=== PATIENT | female | born 1990 | race Caucasian/White ===

== ENCOUNTER 2021-04-19 18:39 | Emergency (ER) | payer OTHER, SELFPAY ==
--- NOTE | 2021-04-19 18:51 | XRR_ITS ---
PROCEDURE INFORMATION: Exam: XR Chest Exam date and time: 04/19/2021 6:51 PM Age: 30 years old Clinical indication: Fever and shortness of breath; Additional info: Dyspnea, fever. Post covid x 18 days TECHNIQUE: Imaging protocol: XR of the chest. Views: 2 views. COMPARISON: No relevant prior studies available. FINDINGS: Lungs: Unremarkable. No consolidation. Pleural spaces: Unremarkable. No pleural effusion. No pneumothorax. Heart/Mediastinum: Unremarkable. No cardiomegaly. Bones/joints: Unremarkable. XR/XR chest 2V* [id number] IMPRESSION: No acute findings.
[2021-04-19 20:31] VITALS: BP 164/97; PULSE 80; RESP 16; TEMP 37; O2SAT 99
[2021-04-19 22:56] VITALS: BP 151/90; PULSE 75; RESP 16; TEMP 36.5; O2SAT 100
[2021-04-19 23:10] LABS: Basophils % 0.2 %; Eosinophils # 0.1 10^3/uL (0.0-0.8); Eosinophils % 1.3 %; Hematocrit 38.4 % (37.0-47.0); Hemoglobin 12.4 g/dL (11.5-15.3); Lymphocytes # 3.2 10^3/uL (0.8-4.8); Lymphocytes % 37.2 %; Mean Corpuscular HGB Conc 32.3 g/dL (30.0-36.0); Mean Corpuscular Hemoglobin 29.2 pg (28.0-34.0); Mean Corpuscular Volume 90.6 fl (81-99); Mean Platelet Volume 9.8 fL (7.4-10.4); Monocytes # 0.5 10^3/uL (0.2-0.9); Monocytes % 5.3 %; Neutrophils # 4.78 10^3/uL (1.8-7.7); Neutrophils % 55.9 %; Nucleated Red Blood Cells % 0 %; Platelet Count 363 10^3/cmm (130-400); Red Blood Count 4.24 10^6/uL (4.1-5.3); White Blood Count 8.6 10^3/uL (4.0-10.0)
[2021-04-19 23:39] LABS: Alanine Aminotransferase 14 U/L (0-33); Albumin Level 4.3 g/dL (3.5-5.2); Alkaline Phosphatase 92 IU/L (35-105); Anion Gap 17.1 (5-19); Aspartate Amino Transferase 17 U/L (0-32); Blood Urea Nitrogen 11 mg/dL (6-20); C Reactive Protein 4.2 mg/L (0.0-4.9); Calcium 8.8 mg/dL (8.5-10.5); Carbon Dioxide 24 mmol/L (22-29); Chloride 103 mmol/L (98-107); Globulin 3.1 g/dL (1.3-4.6); Glomerular Filtration Rate 117.4 mL/min (90-130); Glucose 80 mg/dL (65-115); Osmolality Calculated 288 mOsm/kg (285-295); Potassium 4.1 mmol/L (3.5-5.1); Sodium 140 mmol/L (136-145); Total Bilirubin 0.3 mg/dL (0.15-1.2); Total Protein 7.4 g/dL (6.6-8.7)
--- NOTE | 2021-04-20 01:03 | ED_ITS ---
HPI - COVID General: Chief Complaint: COVID symptoms Stated Complaint: 18 Days Covid +\Fever\SOB\Dizzy Time Seen by Provider: 04/20/21 01:02 Triage information: Has fever, cough or shortness of breath . No known COVID + exposure last 14 days History of Present Illness: 30-year-old female comes in today with complaints of weakness, shortness of breath with ambulating stairs, and fever up to 100 degrees. Patient appears mildly unwell and nontoxic. Patient appears in no pain. Patient tested positive for COVID-19 18 days ago. Patient reports just having a hard time getting better. COVID 19 common symptoms: positive fever(s) and headache(s) COVID Results: No Data to Display Review of Systems Const: Reports: fever(s) Neuro: Reports: headache(s) and weakness in extremities Physical Exam Const: COMMON NORMALS: alert HENMT: COMMON NORMALS: normocephalic and TM's normal bilaterally HEAD & SCALP: normocephalic TYMPANIC MEMBRANE: TM's normal bilaterally MOUTH: Normal oral and palatal mucosa present Neck/C-Spine: GENERAL: No lymphadenopathy Resp: COMMON NORMALS: normal respiratory effort and clear to auscultation bilaterally AUSCULTATION: clear to auscultation bilaterally Cardio: COMMON NORMALS: regular rate and regular rhythm RATE: regular rate RHYTHM: regular rhythm GI: COMMON NORMALS: Soft to palpation and non-tender PALPATION: Yes Soft to palpation Extremity: COMMON NORMALS: no pedal edema Neuro: SENSORIUM/ORIENTATION: Yes alert Psych: COMMON NORMALS: cooperative Skin: COMMON NORMALS: no rashes or lesions noted GENERAL SKIN EXAM: no rashes or lesions noted Course Vital Signs: Vital signs: Vital Signs Temperature 97.7 F 04/19/21 22:56 Pulse Rate 75 04/19/21 22:56 Respiratory Rate 16 04/19/21 22:56 Blood Pressure 151/90 04/19/21 22:56 Pulse Oximetry 100 04/19/21 22:56 MDM - COVID Medical Decision Making Patient was referred to the ER by her primary care who is concerned of patient having a fever of 100, complaining of headache, and complaining of shortness of breath when going upstairs. Patient had tested positive for COVID-19 18 days ago. On exam patient appears well. No acute distress is noted. Lungs are clear to auscultation. Vital signs are normal except for some mild elevation of blood pressure. No edema is noted in the extremities. Differential diagnosis includes but not limited to pneumonia, malingering, long-haul COVID-19. Chest x-ray was normal. Laboratory values are normal. I believe patient probably is a long-haul COVID-19 patient. I tried to reassure her that she will improve there is no signs of serious illness is noted at this time. Recommended patient monitor for worsening symptoms such as severe chest pain. Patient reported understanding and agreed to plan. Lab Data : 04/19/21 22:55 04/19/21 22:55 Radiology Impressions Chest X-Ray 04/19/21 18:51 IMPRESSION: No acute findings. Laboratory Results WBC 8.6 10^3/uL (4.0-10.0) 04/19/21 22:55 RBC 4.24 10^6/uL (4.1-5.3) 04/19/21 22:55 Hgb 12.4 g/dL (11.5-15.3) 04/19/21 22:55 Hct 38.4 % (37.0-47.0) 04/19/21 22:55 MCV 90.6 fl (81-99) 04/19/21 22:55 MCH 29.2 pg (28.0-34.0) 04/19/21 22:55 MCHC 32.3 g/dL (30.0-36.0) 04/19/21 22:55 RDW 12.0 % (12.1-15.1) L 04/19/21 22: Plt Count 363 10^3/cmm (130-400) 04/19/21 22:55 MPV 9.8 fL (7.4-10.4) 04/19/21 22:55 Neut % (Auto) 55.9 % 04/19/21 22:55 Lymph % (Auto) 37.2 % 04/19/21 22:55 [place] % (Auto) 5.3 % 04/19/21 22:55 Eos % (Auto) 1.3 % 04/19/21 22:55 Baso % (Auto) 0.2 % 04/19/21 22:55 Neut # (Auto) 4.78 10^3/uL (1.8-7.7) 04/19/21 22:55 Lymph # (Auto) 3.2 10^3/uL (0.8-4.8) 04/19/21 22:55 [place] # (Auto) 0.5 10^3/uL (0.2-0.9) 04/19/21 22:55 Eos # (Auto) 0.1 10^3/uL (0.0-0.8) 04/19/21 22:55 Baso # (Auto) 0.0 10^3/uL (0.0-0.1) 04/19/21 22:55 Nucleated RBC % (auto) 0 % 04/19/21: Nucleated RBCs # 0.0 /100WBC 04/19/21 22:55 Sodium 140 mmol/L (136-145) 04/19/21 22:55 Potassium 4.1 mmol/L (3.5-5.1) 04/19/21 22:55 Chloride 103 mmol/L (98-107) 04/19/21 22:55 Carbon Dioxide 24 mmol/L (22-29) 04/19/21 22: Anion Gap 17.1 (5-19) 04/19/21 22:55 BUN 11 mg/dL (6-20) 04/19/21 22:55 Creatinine 0.6 mg/dL (0.5-0.9) 04/19/21 22: GFR Calculation 117.4 mL/min (90-130) 04/19/21 22: Glucose 80 mg/dL (65-115) 04/19/21 22: Calculated Osmolality 288 mOsm/kg (285-295) 04/19/21 22: Lactic Acid 1.0 mmol/L (0.5-2.2) 04/19/21 22:55 Calcium 8.8 mg/dL (8.5-10.5) 04/19/21 22: Total Bilirubin 0.3 mg/dL (0.15-1.2) 04/19/21 22:55 AST 17 U/L (0-32) 04/19/21 22:55 ALT 14 U/L (0-33) 04/19/21 22:55 Alkaline Phosphatase 92 IU/L (35-105) 04/19/21 22: C-Reactive Protein 4.2 mg/L (0.0-4.9) 04/19/21 22:55 Total Protein 7.4 g/dL (6.6-8.7) 04/19/21 22:55 Albumin 4.3 g/dL (3.5-5.2) 02 22:55 Globulin 3.1 g/dL (1.3-4.6) 04/19/21 22:55 No Data to Display Discharge Plan Discharge Patient Disposition: Home Clinical Impression: COVID-19 long hauler Condition: Stable Discharge Orders: Discharge ED (Routine); Ordered 04/20/21 Ordered By: Iftikhar Jose Discharge Diet: Usual diet Discharge Activity: Increase activity as tolerated Patient Instructions: Viral Syndrome (ED) Activity Restrictions/Additional Instructions: Home and rest. Drink plenty of fluids. Use acetaminophen or ibuprofen for pain and fever. Activity as tolerated. Follow-up with primary care for further instructions. Return to the ER for new concerns. Coding Level of Care Code ED [employer] Straightener Stamper for Xavier Pardo
[2021-04-20 01:33] VITALS: BP 153/97; PULSE 77; RESP 18; O2SAT 98
== END 2021-04-20 01:20 | disposition home or self-care (01) ==
PROVIDERS: Emergency Provider Nurse Practitioner Family
DX: U09.9 Post COVID-19 condition, unspecified (principal)
CPT/HCPCS: 71046; 80053; 83605; 85025; 86140; 99283

== ENCOUNTER → 2021-05-17 14:16 | Outpatient (BNVA) | payer OTHER, SELFPAY | PROVIDERS: Visit Provider Podiatrist Foot & Ankle Surgery | DX: M79.672 Pain in left foot (principal); M72.2 Plantar fascial fibromatosis; M76.822 Posterior tibial tendinitis, left leg | CPT/HCPCS: 73630 ==

== ENCOUNTER 2021-07-19 14:40 | Outpatient (CLI) | payer OTHER, SELFPAY | END 2021-07-19 14:41 | disposition home or self-care (01) | LOC: SPT 14:41 | PROVIDERS: Visit Provider Podiatrist Foot & Ankle Surgery | DX: Z46.89 Encounter for fitting and adjustment of other specified devices (principal); M72.2 Plantar fascial fibromatosis; M76.829 Posterior tibial tendinitis, unspecified leg | CPT/HCPCS: 97760; L3030 ==

== ENCOUNTER 2022-06-15 14:56 | Outpatient (CLI) | payer OTHER, SELFPAY | END 2022-06-15 14:57 | disposition home or self-care (01) | LOC: SPT 14:56 | PROVIDERS: Visit Provider Podiatrist Foot & Ankle Surgery | DX: Z46.89 Encounter for fitting and adjustment of other specified devices (principal); M72.2 Plantar fascial fibromatosis; M76.829 Posterior tibial tendinitis, unspecified leg | CPT/HCPCS: 97760; L3030 ==

== ENCOUNTER 2022-11-14 18:29 | Emergency (ER) | payer OTHER, SELFPAY ==
[2022-11-14 18:36] VITALS: BP 154/104; PULSE 79; RESP 16; TEMP 37.4; O2SAT 98; BMI 30.5
--- NOTE | 2022-11-14 18:39 | XRR_ITS ---
PROCEDURE INFORMATION: Exam: XR Right Knee Exam date and time: 11/14/2022 6:52 PM Age: 32 years old Clinical indication: Injury or trauma; Fall; Blunt trauma; Knee; Right TECHNIQUE: Imaging protocol: Radiologic exam of the right knee. Views: 3 views. COMPARISON: No relevant prior studies available. FINDINGS: Bones/joints: Osseous structures are unremarkable. No fracture, deformity or malalignment. Joint surfaces preserved. Soft tissues: Normal. No joint effusion XR/XR knee RT 3V* [id number] IMPRESSION: Normal right knee.
--- NOTE | 2022-11-14 18:39 | XRR_ITS ---
PROCEDURE INFORMATION: Exam: XR Left Ankle Exam date and time: 11/14/2022 6:50 PM Age: 32 years old Clinical indication: Injury or trauma; Fall; Blunt trauma; Ankle; Left TECHNIQUE: Imaging protocol: Radiologic exam of the left ankle. Views: 3 or more views. COMPARISON: No relevant prior studies available. FINDINGS: Bones/joints: Osseous structures are intact. No fracture or malalignment. Visualized joint surfaces are preserved. Soft tissues: Unremarkable. XR/XR ankle LT min 3V* [id number] IMPRESSION: Negative exam. No acute bony abnormalities.
--- NOTE | 2022-11-14 19:15 | W.ED.FALL ---
HPI - Fall General: Chief Complaint: Fall Stated Complaint: Rt Knee\Left Ankle Injury Time Seen by Provider: 11/14/22 18:48 Source: patient Mode of arrival: ambulatory Limitations: no limitations History of Present Illness: 32-year-old female who states that she had fell yesterday states that she injured her left ankle and right knee states she been having some right knee pain today. States she is able to ambulate but has pain in her knee with ambulation. She denies any head denies any injuries rates her pain a 4 out of 10 currently Associated symptoms-after fall: Denies abdominal pain, chest pain, headache(s) or neck pain Review of Systems Const: Denies: fever(s) or chills ENMT: Denies: throat pain or dental pain Card: Denies: chest pain Resp: Denies: dyspnea GI: Denies: abdominal pain, nausea, vomiting or diarrhea Musc: Reports: extremity pain; Denies: neck pain or back pain Skin/Breast: Denies: rash Neuro: Denies: headache(s) PFSH ED PFSH: Social History Smoking and tobacco status: current every day smoker Physical Exam Const: COMMON NORMALS: no acute distress and patient oriented x3 HENMT: COMMON NORMALS: normocephalic HEAD & SCALP: normocephalic Eye: COMMON NORMALS: conjunctivae normal CONJUNCTIVA: Yes conjunctivae normal Neck/C-Spine: COMMON NORMALS: supple Chest: COMMONS NORMALS: normal inspection of the chest Resp: COMMON NORMALS: normal respiratory effort and clear to auscultation bilaterally EFFORT & INSPECTION: Yes able to speak in complete sentences AUSCULTATION: clear to auscultation bilaterally Cardio: COMMON NORMALS: regular rate and regular rhythm RATE: regular rate RHYTHM: regular rhythm GI: INSPECTION: Yes normal to inspection Back/Pelvis: OTHER: No midline back tenderness Extremity: NARRATIVE EXTREMITY EXAM: Small abrasion to left ankle some slight tenderness to right knee she has full range of motion no swelling distal pulses intact Neuro: COMMON NORMALS: patient oriented x3 Psych: COMMON NORMALS: mental status grossly normal Skin: COMMON NORMALS: no rashes or lesions noted GENERAL SKIN EXAM: no rashes or lesions noted Course Vital Signs: Vital signs: Vital Signs Temperature 99.3 F 11/14/22 18:36 Pulse Rate 79 08/29/23 18:36 Respiratory Rate 16 11/14/22 18:36 Blood Pressure 154/104 11/14/22 18:36 Pulse Oximetry 98 11/14/22 18:36 MDM - Fall Medical Decision Making Patient presents here with a knee sprain also with an abrasion to her left ankle x-rays here are normal exam here is benign she is able ambulate she is to weight-bear as tolerated we will get her follow-up with orthopedics we will prescribe her Naprosyn she is to ice as well she understands agrees to plan. Medical Records I reviewed the patient's medical records. Lab Data I reviewed the patient's lab results. Imaging Data xr r knee: I personally reviewed and interpreted this imaging study as follows: My impression: no acute fx xr L ankle: I personally reviewed and interpreted this imaging study as follows: My impression: no acute fx Discharge Plan Discharge Patient Disposition: Home Clinical Impression: Right knee sprain, Abrasion Condition: Stable Prescriptions: New Naprosyn 500 mg tablet 500 mg PO BID PRN (Reason: pain) Qty: 20 0RF No Action buspirone 10 mg tablet 10 mg PO TID naproxen [EC-Naproxen] 500 mg tablet,delayed release (DR/EC) 500 mg PO Q12H (DME) sole supports See Rx Instructions .Route .MEDSUPPLY Qty: 1 0RF Rx Instructions: As directed Discharge Orders: Discharge ED (Routine); Ordered 11/14/22 Ordered By: Gerardo Pierre Referrals: Chano Rodriguez DO [Physician] - 1-3 days Heron Sanchez [Primary Care Provider] - Discharge Diet: Advance as tolerated Discharge Activity: Resume usual activity Patient Instructions: Knee Sprain (ED) Coding Level of Care Code ED Preschool Substitute Teacher for Xavier Pardo
[2022-11-14] MEDS: tetanus-dipt-pertussis 0.5 mL SDV IM (19:30)
--- NOTE | 2022-11-15 07:45 | DCPLANNER ---
Addendum entered by Lacey Quiroga 11/17/22 11:39: manager developmental received the following message from the ortho clinic regarding follow up appointment: attempt made to contact patient - left vm and mailed letter to call our clinic to schedule arina/ rocco earl Original Note: manager developmental had massage to schedule a follow up appointment for patient with ortho. manager developmental sent patients information to the front office staff at ortho. Patients information will be printed and reviewed. Clinic will call patient with appointment information.
== END 2022-11-14 19:39 | disposition home or self-care (01) ==
PROVIDERS: Emergency Provider Emergency Medicine; PCP Family Medicine
DX: S90.512A Abrasion, left ankle, initial encounter (principal); S83.91XA Sprain of unspecified site of right knee, initial encounter; F17.210 Nicotine dependence, cigarettes, uncomplicated; W19.XXXA Unspecified fall, initial encounter; Z23 Encounter for immunization
CPT/HCPCS: 73562; 73610; 90471; 90715; 99283

== ENCOUNTER 2023-05-06 19:23 | Emergency (ER) | payer OTHER, SELFPAY ==
[2023-05-06 19:33] VITALS: BP 172/114; PULSE 81; RESP 16; TEMP 37; O2SAT 97; BMI 32.5
--- NOTE | 2023-05-06 19:47 | ED_ITS ---
HPI - URI/Sore Throat General: Chief Complaint: Upper Respiratory Infection Stated Complaint: Throat sore, white spots Time Seen by Provider: 05/06/23 19:26 Source: patient Mode of arrival: ambulatory Limitations: no limitations History of Present Illness: 32-year-old female states she been havin g sore throat over the last 2 days states that it is painful to swallow she denies any cough denies any shortness of breath she has noticed some pus pockets. She denies any worsening improving factors. Associated symptoms: Deny abdominal pain, chills, chest pain, diarrhea, fever(s), headache(s), nausea or vomiting Review of Systems Const: Denies: fever(s), chills, body aches or change in appetite ENMT: Reports: throat pain; Denies: dental pain Card: Denies: chest pain Resp: Denies: dyspnea GI: Denies: abdominal pain, nausea, vomiting or diarrhea Musc: Denies: neck pain or back pain Skin/Breast: Denies: rash Neuro: Denies: headache(s) PFSH ED PFSH: Social History Smoking and tobacco/nicotine status: former use of tobacco/nicotine Second hand smoke exposure: No Alcohol intake: never Substance/Drug Use: never Physical Exam Const: COMMON NORMALS: no acute distress, patient oriented x3 and healthy appearing HENMT: COMMON NORMALS: normocephalic and atraumatic HEAD & SCALP: normocephalic and atraumatic OTHER: Posterior pharynx erythema with pus pockets Eye: COMMON NORMALS: conjunctivae normal CONJUNCTIVA: Yes conjunctivae normal Neck/C-Spine: COMMON NORMALS: full ROM and supple Chest: COMMONS NORMALS: normal inspection of the chest Resp: COMMON NORMALS: normal respiratory effort Extremity: COMMON NORMALS: normal to inspection and full ROM Neuro: COMMON NORMALS: patient oriented x3, moves all extremities and no focal motor deficits Psych: COMMON NORMALS: mental status grossly normal, Normal thought process present and cooperative THOUGHT PROCESS: Normal thought process present Skin: COMMON NORMALS: no rashes or lesions noted and no wounds GENERAL SKIN EXAM: no rashes or lesions noted Course Vital Signs: Vital signs: Vital Signs Temperature 98.6 F 05/06/23 19:33 Pulse Rate 81 05/06/23 19:33 Respiratory Rate 16 05/06/23 19:33 Blood Pressure 172/114 05/06/23 19:33 Pulse Oximetry 97 05/06/23 19:33 Oxygen Delivery Me thod Room Air 05/06/23 19:33 MDM - URI/Sore Throat Medical Decision Making Patient presents here with likely strep throat did give her Decadron we will place her on antibiotics she has no signs of peritonsillar abscess she is stable for discharge return if worsening. Medical Records I reviewed the patient's medical records. No radiology studies performed this visit Discharge Plan Discharge Patient Disposition: Home Clinical Impression: Strep throat Condition: Stable Prescriptions: New cephalexin 500 mg capsule 500 mg PO TID 7 Days Qty: 21 0RF No Action buspirone 10 mg tablet 10 mg PO TID naproxen [EC-Naproxen] 500 mg tablet,delayed release (DR/EC) 500 mg PO Q12H (DME) sole supports See Rx Instructions .Route .MEDSUPPLY Qty: 1 0RF Rx Instructions: As directed mupirocin 2 % ointment 1 applic topical TID 7 Days Qty: 15 0RF Naprosyn 500 mg tablet 500 mg PO BID PRN (Reason: pain) Qty: 20 0RF Discharge Orders: Discharge ED (Routine); Ordered 05/06/23 Ordered By: Gerardo Pierre Referrals: Heron Sanchez [Primary Care Provider] - 4-7 days Discharge Diet: Advance as tolerated Discharge Activity: Resume usual activity Patient Instructions: Strep Throat (ED) Coding Level of Care Code ED Mobile Marketing Specialist for Xavier Pardo
[2023-05-06] MEDS: cephALEXin 500 mg Capsule PO (19:57)
[2023-05-06] MEDS: dexamethasone 10 mg/mL INJ IM (19:59)
[2023-05-06 20:28] VITALS: BP 155/101; PULSE 81; RESP 16; O2SAT 97
== END 2023-05-06 20:29 | disposition home or self-care (01) ==
PROVIDERS: Emergency Provider Emergency Medicine; PCP Family Medicine
DX: J02.0 Streptococcal pharyngitis (principal); Z87.891 Personal history of nicotine dependence
CPT/HCPCS: 96372; 99284; J1100

== ENCOUNTER → 2024-01-08 08:44 | Outpatient (BNVA) | payer OTHER, SELFPAY | PROVIDERS: PCP Family Medicine; Visit Provider Nurse Practitioner Family | DX: J02.9 Acute pharyngitis, unspecified (principal) | CPT/HCPCS: 87081; 87880 ==

== ENCOUNTER → 2024-06-16 08:43 | Outpatient (BNVA) | payer OTHER, SELFPAY | PROVIDERS: PCP Family Medicine; Visit Provider Nurse Practitioner Family | DX: J02.9 Acute pharyngitis, unspecified (principal) | CPT/HCPCS: 87880 ==

== ENCOUNTER 2024-06-21 22:06 | Emergency (ER) | payer OTHER, SELFPAY ==
[2024-06-21 22:11] VITALS: BP 148/87; PULSE 72; RESP 16; TEMP 36.9; O2SAT 98
[2024-06-21 22:17] VITALS: BP 146/100; PULSE 88; RESP 16; O2SAT 98
[2024-06-21 22:38] LABS: Basophils % 0.3 %; Eosinophils # 0.7 10^3/uL (0.0-0.8); Eosinophils % 6.8 %; Hematocrit 38.9 % (36-47); Lymphocytes # 2.9 10^3/uL (0.8-4.8); Mean Corpuscular HGB Conc 32.1 g/dL (30-55); Mean Corpuscular Hemoglobin 29.8 pg (27-33); Mean Corpuscular Volume 92.6 fl (85-98); Mean Platelet Volume 9.4 fL (7.4-10.4); Monocytes # 0.6 10^3/uL (0.2-0.9); Monocytes % 5.7 %; Neutrophils # 5.44 10^3/uL (1.8-7.7); Neutrophils % 56.8 %; Nucleated Red Blood Cells % 0 %; Platelet Count 381 10^3/cmm (157-399); Red Cell Distribution Width 12.6 % (12.1-15.1); White Blood Count 9.59 10^3/uL (3.29-11.43)
--- NOTE | 2024-06-21 22:47 | ED_ITS ---
HPI - Allergic Reaction 2 General: Chief complaint: Allergic Reaction Stated complaint: Allergic Reaction Time Seen by Provider: 06/21/24 22:25 Source: patient Mode of arrival: ambulatory Limitations: no limitations History of Present Illness: HPI narrative: 34yo female presents with family for manuela levy of allergic reaction. Patient reports that she does have an allergy to tomatoes and touched the dinner plates after her family had kaushal matos. States that she has never had a reaction from touching the plates previously. Reports that her hands started swelling and turning red, then the rash moved up her arms and is now around her hip to the back area. States that she is having itching on the roof of her mouth. Reports she did take 1 Benadryl when her symptoms started. States the exposure was at approximately 2130 this evening. Patient reports that she does have multiple food allergies and seems to have new ones every year. Patient does have an EpiPen, but did not use it. She denies difficulty breathing, shortness of breath, vomiting, any other concerns at this time. Patient does state that she is currently taking amoxicillin for strep throat. Associated symptoms: Deny nausea or vomiting Related Data Home Medications ?Medication ?Instructions ?Recorded ?Confirmed buspirone 10 mg tablet 10 mg PO TID 05/17/21 naproxen 500 mg tablet,delayed 500 mg PO Q12H 05/17/21 06/16/24 release (EC-Naproxen) lisinopril 10 mg tablet mg PO 01/08/24 06/16/24 norethindrone (contraceptive) 0.35 mg PO 01/08/2405/1925 mg tablet Previous Rx's ?Medication ?Instructions ?Recorded sole supports #1 ea 05/15/22 naproxen 500 mg tablet (Naprosyn) 500 mg PO BID PRN pa in #20 tabs 11/14/22 amoxicillin 500 mg tablet 500 mg PO BID 10 days #20 ta bs 06/16/24 fluconazole 150 mg tablet 150 mg PO Q3D 2 doses #2 tab s 06/16/24 Allergies Allergy/AdvReac Type Severity Reaction Status Date / Time almond Allergy Unknown Verified 06/21/24 22:15 apple Allergy ALGY-Anaphy Verified 06/21/24 22:15 laxis avocado Allergy ALGY-Anaphy Verified 06/21/24 22:15 laxis grape Allergy Unknown Verified 06/21/24 22:15 grapefruit Allergy ALGY-Anaphy Verified 06/21/24 22:15 laxis lemon Allergy ALGY-Anaphy Verified 06/21/24 22:15 laxis [place] Allergy ALGY-Anaphy Verified 06/21/24 22:15 laxis nectarine Allergy Unknown Verified 06/21/24 22:15 orange Allergy ALGY-Anaphy Verified 06/21/24 22:15 laxis peach Allergy Unknown Verified 06/21/24 22:15 peas Allergy ALGY-Anaphy Verified 06/21/24 22:15 laxis pistachio nut Allergy ALGY-Anaphy Verified 06/21/24 22:15 laxis plum Allergy ALGY-Anaphy Verified 06/21/24 22:15 laxis tomato Allergy ALGY-Anaphy Verified 06/21/24 22:15 laxis Review of Systems 2 Const: Denies: fever(s), chills or body aches Eyes: Denies: change in vision or blurry vision ENMT: Reports: other (Itching of the mouth); Denies: throat pain Card: Denies: chest pain Resp: Denies: dyspnea or wheezing GI: Denies: nausea or vomiting Skin/Breast: Reports: rash PFSH ED 2 PFSH: Social History Smoking and tobacco/nicotine status: never used tobacco/nicotine Second hand smoke exposure: No Alcohol intake: never Substance/Drug Use: never Physical Exam 2 Const: COMMON NORMALS: no acute distress, patient oriented x3 and alert G ENERAL APPEARANCE: cooperative ORIENTATION/CONSCIOUSNESS: Yes awake OTHER: Patient is ambulatory to the exam room unassisted. She is sitting upright on the stretcher in no acute distress. She is able to give history with no difficulty. She is interactive with exam appropriately. Family is at bedside HENMT: COMMON NORMALS: normocephalic and atraumatic HEAD & SCALP: n ormocephalic and atraumatic FACE & SINUS: normal facial exam; no edema MOUTH: lip normal and tongue normal; no drooling and no muffled voice THROAT: posterior oropharynx normal Chest: CHEST: Yes Symmetrical chest wall rise Resp: COMMON NORMALS: normal respiratory effort, No use of accessory muscles and clear to auscultation bilaterally EFFORT & INSPECTION: Yes able to speak in complete sentences and Yes symmetric chest movement AUSCULTATION: clear to auscultation bilaterally Cardio: COMMON NORMALS: regular rate and regular rhythm RATE: regular rate RHYTHM: regular rhythm Extremity: COMMON NORMALS: full ROM Neuro: COMMON NORMALS: patient oriented x3 SENSORIUM/ORIENTATION: Yes alert Psych: COMMON NORMALS: cooperative Course 2 Vital Signs: Vital signs: Vital Signs Temperature 98.5 F 06/21/24 22:11 Pulse Rate 71 06/21/24 22:50 Respiratory Rate 16 06/21/24 22:50 Blood Pressure 104/74 06/21/24 22:50 Pulse Oximetry 100 06/21/24 22:50 Oxygen Delivery Me thod Room Air 06/21/24 22:50 MDM - Allergic Reaction Medical Decision Making 34yo female presents with family for evaluation of allergic reaction. Patient reports that she does have an allergy to tomatoes and touched the dinner plates after her family had kaushal matos. States that she has never had a reaction from touching the plates previously. Reports that her hands started swelling and turning red, then the rash moved up her arms and is now around her hip to the back area. States that she is having itching on the roof of her mouth. Reports she did take 1 Benadryl when her symptoms started. States the exposure was at approximately 2130 this evening. Patient reports that she does have multiple food allergies and seems to have new ones every year. Patient does have an EpiPen, but did not use it. She denies difficulty breathing, shortness of breath, vomiting, any other concerns at this time. Patient does state that she is currently taking amoxicillin for strep throat. Patient is nontoxic in appearance. Vital signs are stable. No anaphylaxis at this time. Will proceed with IV diphenhydramine, famotidine, and dexamethasone as there is a possible cross-reactivity between Solu-Medrol and patient's known allergy of avocado. Patient did have resolution of her symptoms after administration of medication. Patient did feel safe with going home. Encourage patient to keep her EpiPen close by and follow-up with her medical chemist. Return precautions provided. Patient and family state understanding and have no further questions or concerns at this time. Differential Diagnosis Likely anaphylaxis, allergic reaction, angioedema and adverse reaction to drug Lab Data I reviewed the patient's lab results. 06/21/24: Laboratory Results WBC 9.59 10^3/uL (3.29-11.43) 06/21/24: RBC 4.20 10^6/uL (3.85-5.65) 06/21/24: Hgb 12.50 g/dL (11.27-16.99) 06/21/24: Hct 38.9 % (36-47) 06/21/24: MCV 92.6 fl (85-98) 06/21/24: MCH 29.8 pg (27-33) 06/21/24: MCHC 32.1 g/dL (30-55) 06/21/24: RDW 12.6 % (12.1-15.1) 06/21/24: Plt Count 381 10^3/cmm (157-399) 06/21/24: MPV 9.4 fL (7.4-10.4) 06/21/24: Neut % (Auto) 56.8 % 06/21/24: Lymph % (Auto) 30.0 % 06/21/24: [place] % (Auto) 5.7 % 06/21/24: Eos % (Auto) 6.8 % 06/21/24: Baso % (Auto) 0.3 % 06/21/24: Neut # (Auto) 5.44 10^3/uL (1.8-7.7) 06/21/24: Lymph # (Auto) 2.9 10^3/uL (0.8-4.8) 06/21/24: [place] # (Auto) 0.6 10^3/uL (0.2-0.9) 06/21/24: Eos # (Auto) 0.7 10^3/uL (0.0-0.8) 06/21/24: Baso # (Auto) 0.0 10^3/uL (0.0-0.1) 06/21/24: Nucleated RBC % (auto) 0 % 06/21/24: Nucleated RBCs # 0.0 /100WBC 04/05/25 22:30 No radiology studies performed this visit Discharge Plan Discharge Patient Disposition: Home Clinical Impression: Allergic reaction Qualifiers: Encounter type: initial encounter Qualified Code(s): T78.40XA - Allergy, unspecified, initial encounter Condition: Stable Prescriptions: No Action buspirone 10 mg tablet 10 mg PO TID naproxen [EC-Naproxen] 500 mg tablet,delayed release (DR/EC) 500 mg PO Q12H lisinopril 10 mg tablet PO norethindrone (contraceptive) 0.35 mg tablet PO amoxicillin 500 mg tablet 500 mg PO BID 10 Days Qty: 20 0RF fluconazole 150 mg tablet 150 mg PO Q3D Qty: 2 0RF Rx Instructions: may repeat second dose 72 hrs after first dose if symptoms persist (DME) sole supports See Rx Instructions .Route .MEDSUPPLY Qty: 1 0RF Rx Instructions: As directed Naprosyn 500 mg tablet 500 mg PO BID PRN (Reason: pain) Qty: 20 0RF Discharge Orders: Discharge ED (Routine); Ordered 06/21/24 Ordered By: Chirag Gutierrez Referrals: Heron Sanchez [Primary Care Provider] - Discharge Diet: Usual diet Discharge Activity: Resume usual activity Patient Instructions: Food Allergy (ED) Activity Restrictions/Additional Instructions: Continue to monitor your food allergies closely Follow-up with your medical chemist as needed Return to the emergency department as needed Print Language: [place] Coding Level of Care Code ED V Block Saw Operator for Xavier Pardo
[2024-06-21] MEDS: dexamethasone 4 mg/mL INJ IVP (22:48)
[2024-06-21] MEDS: diphenhydrAMINE 50 mg/mL SDV 1mL 25 MG IVP (22:48)
[2024-06-21] MEDS: famotidine 20 mg/2 mL INJ IVP (22:49)
[2024-06-21 22:50] VITALS: BP 104/74; PULSE 71; RESP 16; O2SAT 100
[2024-06-22 00:07] VITALS: BP 129/70; PULSE 70; RESP 14; O2SAT 97
== END 2024-06-22 | disposition home or self-care (01) ==
PROVIDERS: Emergency Provider Nurse Practitioner; PCP Family Medicine
DX: T78.1XXA Other adverse food reactions, not elsewhere classified, initial encounter (principal); X58.XXXA Exposure to other specified factors, initial encounter
CPT/HCPCS: 85025; 96374; 96375; 99284; J1100; J1200; J3490

== ENCOUNTER 2025-01-27 13:16 | Outpatient (CLI) | payer OTHER, MEDICAID, SELFPAY ==
[2025-01-27 13:16] VITALS: BMI 33.3
[2025-01-27 13:31] VITALS: BP 136/90; PULSE 69
[2025-01-27 13:57] VITALS: BP 130/79; PULSE 71
[2025-01-27 14:12] VITALS: BP 129/81; PULSE 77
[2025-01-27 14:27] VITALS: BP 111/69; PULSE 75
== END 2025-01-27 14:42 | disposition home or self-care (01) ==
LOC: OPOB 13:19 → OBGYN 13:20
PROVIDERS: PCP Family Medicine; Visit Provider Obstetrics & Gynecology
DX: O26.899 Other specified pregnancy related conditions, unspecified trimester (principal); Z3A.00 Weeks of gestation of pregnancy not specified; R55 Syncope and collapse
CPT/HCPCS: 59025; 99211

== ENCOUNTER 2025-02-04 18:45 | Outpatient (CLI) | payer MEDICAID, SELFPAY ==
[2025-02-04] VITALS (8 sets, daily range): BP systolic 120–172; BP diastolic 77–101; PULSE 65–76; RESP 16; TEMP 36.6; O2SAT 99; BMI 33.8
[2025-02-04 20:00] LABS: Hematocrit 34.8 % (36-47); Hemoglobin 11.40 g/dL (11.27-16.99); Mean Corpuscular HGB Conc 32.8 g/dL (30-55); Mean Corpuscular Hemoglobin 30.1 pg (27-33); Mean Corpuscular Volume 91.8 fl (85-98); Nucleated Red Blood Cells % 0 %; Platelet Count 301 10^3/cmm (157-399); Red Blood Count 3.79 10^6/uL (3.85-5.65); White Blood Count 8.90 10^3/uL (3.29-11.43)
[2025-02-04 20:04] LABS: Glucose Urine UA Negative (Normal); Nitrate Urine Negative (Negative); Specific Gravity, Urine 1.005 (1.005-1.030)
[2025-02-04] MEDS: NIFEdipine ER (24 hr) 30 mg Tablet PO (20:05)
[2025-02-04 20:09] LABS: Add Urine Microscopic? YES
[2025-02-04 20:20] LABS: Alanine Aminotransferase 27 U/L (0-33); Albumin Level 3.6 g/dL (3.5-5.2); Alkaline Phosphatase 96 U/L (35-105); Anion Gap 14.8 (5-19); Aspartate Amino Transferase 21 U/L (0-32); Blood Urea Nitrogen 7 mg/dL (6-20); Calcium 8.8 mg/dL (8.5-10.5); Carbon Dioxide 23 mmol/L (22-29); Chloride 105 mmol/L (98-107); Globulin 3.3 g/dL (1.3-4.6); Glucose 88 mg/dL (65-115); Osmolality Calculated 285 mOsm/kg (285-295); Potassium 3.8 mmol/L (3.5-5.1); Sodium 139 mmol/L (136-145); Total Protein 6.9 g/dL (6.6-8.7); Uric Acid 2.6 mg/dL (2.4-5.7)
[2025-02-04 20:34] LABS: UPRO/UCREAT Ratio 0.33 mg/mg CR
== END 2025-02-04 21:05 | disposition home or self-care (01) ==
LOC: OPOB 18:47 → OBGYN 18:47
PROVIDERS: PCP Family Medicine; Visit Provider Obstetrics & Gynecology
DX: O26.899 Other specified pregnancy related conditions, unspecified trimester (principal); Z3A.00 Weeks of gestation of pregnancy not specified; R10.9 Unspecified abdominal pain
CPT/HCPCS: 80053; 81001; 82570; 83615; 84156; 84550; 85025; 99211; J9999

== ENCOUNTER 2025-02-26 11:34 | Outpatient (CLI) | payer MEDICAID, SELFPAY ==
[2025-02-26] VITALS (12 sets, daily range): BP systolic 117–140; BP diastolic 77–90; PULSE 77–90; RESP 18; BMI 34.7
[2025-02-26 13:25] LABS: Hematocrit 33.0 % (36-47); Hemoglobin 10.70 g/dL (11.27-16.99); Mean Corpuscular HGB Conc 32.4 g/dL (30-55); Mean Corpuscular Hemoglobin 29.7 pg (27-33); Mean Corpuscular Volume 91.7 fl (85-98); Nucleated Red Blood Cells % 0 %; Platelet Count 307 10^3/cmm (157-399); Red Blood Count 3.60 10^6/uL (3.85-5.65); White Blood Count 9.89 10^3/uL (3.29-11.43)
[2025-02-26 13:44] LABS: Alanine Aminotransferase 17 U/L (0-33); Albumin Level 3.5 g/dL (3.5-5.2); Alkaline Phosphatase 94 U/L (35-105); Anion Gap 16.1 (5-19); Aspartate Amino Transferase 16 U/L (0-32); Blood Urea Nitrogen 10 mg/dL (6-20); Calcium 8.8 mg/dL (8.5-10.5); Carbon Dioxide 22 mmol/L (22-29); Chloride 104 mmol/L (98-107); Globulin 3.0 g/dL (1.3-4.6); Glucose 85 mg/dL (65-115); Osmolality Calculated 284 mOsm/kg (285-295); Potassium 4.1 mmol/L (3.5-5.1); Sodium 138 mmol/L (136-145); Total Protein 6.5 g/dL (6.6-8.7); Uric Acid 2.7 mg/dL (2.4-5.7)
[2025-02-26 13:45] LABS: Glucose Urine UA Negative (Normal); Nitrate Urine Negative (Negative); Specific Gravity, Urine 1.022 (1.005-1.030)
[2025-02-26 13:50] LABS: Add Urine Microscopic? YES; Universal Test for UA Present (0)
[2025-02-26 14:09] LABS: UA Slide Review UA Slide Review Perf; UPRO/UCREAT Ratio 0.10 mg/mg CR
== END 2025-02-26 14:23 | disposition home or self-care (01) ==
LOC: OPOB 11:42 → OBGYN 11:43
PROVIDERS: PCP Family Medicine; Visit Provider Family Medicine
DX: O13.9 Gestational [pregnancy-induced] hypertension without significant proteinuria, unspecified trimester (principal); Z3A.00 Weeks of gestation of pregnancy not specified; R51.9 Headache, unspecified; H53.8 Other visual disturbances
CPT/HCPCS: 36415; 59025; 80053; 81001; 82570; 83615; 84156; 84550; 85025; 99211